=== PATIENT | female | born 1965 | race Caucasian/White ===

== ENCOUNTER 2020-07-01 19:06 | Outpatient (REF) | payer MEDICAID, SELFPAY ==
[2020-07-05 15:48] LABS: SARS-CoV-2 RNA Undetected (Undetected); SARS-CoV-2 Specimen Source Nasal
== END 2020-07-01 19:26 ==
LOC: NCHCN 19:06
PROVIDERS: PCP Nurse Practitioner Family; Visit Provider Nurse Practitioner Family
DX: Z20.828 Contact with and (suspected) exposure to other viral communicable diseases (principal)
CPT/HCPCS: U0003

== ENCOUNTER 2020-08-03 19:00 | Outpatient (REF) | payer MEDICAID, SELFPAY ==
[2020-08-07 15:42] LABS: SARS-CoV-2 RNA Undetected (Undetected); SARS-CoV-2 Specimen Source Nasal
== END 2020-08-03 19:20 ==
LOC: NCHCN 19:00
PROVIDERS: PCP Nurse Practitioner Family; Visit Provider Nurse Practitioner Family
DX: Z20.828 Contact with and (suspected) exposure to other viral communicable diseases (principal)
CPT/HCPCS: U0003

== ENCOUNTER 2021-01-11 15:52 | Outpatient (REF) | payer MEDICAID, SELFPAY ==
[2021-01-12 14:21] LABS: COVID-19 RT-PCR UVMMC Result Negative (Negative)
== END 2021-01-11 15:53 | disposition home or self-care (01) ==
LOC: NCHCN 15:52
PROVIDERS: PCP Nurse Practitioner Family; Visit Provider Nurse Practitioner Family
DX: Z20.822 Contact with and (suspected) exposure to COVID-19 (principal)
CPT/HCPCS: U0003

== ENCOUNTER 2021-08-23 11:38 | Outpatient (REF) | payer MEDICAID, SELFPAY ==
--- NOTE | 2021-08-23 11:00 | PAPFT_PTH ---
PATIENT: Rosi Espitia LOC: [facility]#:[id number] AGE/SX: 55/F ROOM: RE08/23/[address]: Pamela Dutton : 1965 BED: DIS: 08/23/2021 SPEC #: [id number] RECD: 08/24/21 12:42 STATUS: TIM REStephen #: [id number] WILLARD: 08/23/21 11:[address]: Amanda Duttonlaide DEPT: [facility] Cytology RECD BY: Cyndy Kern ENTERED: 08/24/21 12:42 SP TYPE: PAPFT OTHR DR: Yesika Moody Tissues: 1 - CX/ENDOCX FOR PAP SMEARS Procedures: PAP THIN PREP/[facility] Screening HPV DNA PROBE Comments: [id number]
[2021-08-23 20:49] LABS: TSH 1.24 uIU/mL (0.36-3.74)
== END 2021-08-23 11:39 | disposition home or self-care (01) ==
LOC: NCHCN 11:38
PROVIDERS: PCP Nurse Practitioner Family; Visit Provider Nurse Practitioner Family
DX: E03.9 Hypothyroidism, unspecified (principal); Z12.4 Encounter for screening for malignant neoplasm of cervix; Z11.51 Encounter for screening for human papillomavirus (HPV)
CPT/HCPCS: 88142; 84443; 87624

== ENCOUNTER 2022-07-12 15:35 | Outpatient (REF) | payer OTHER, MEDICAID, SELFPAY ==
[2022-07-12 19:29] LABS: TSH 0.28 uIU/mL (0.36-3.74)
== END 2022-07-12 15:36 | disposition home or self-care (01) ==
LOC: NCHCN 15:35
PROVIDERS: PCP Nurse Practitioner Family; Visit Provider Nurse Practitioner Family
DX: E03.9 Hypothyroidism, unspecified (principal)
CPT/HCPCS: 84443

== ENCOUNTER 2022-08-10 15:55 | Outpatient (REF) | payer OTHER, SELFPAY ==
[2022-08-10 19:56] LABS: TSH 0.61 uIU/mL (0.36-3.74)
== END 2022-08-10 15:56 | disposition home or self-care (01) ==
LOC: NCHCN 15:55
PROVIDERS: PCP Nurse Practitioner Family; Visit Provider Nurse Practitioner Family
DX: E03.9 Hypothyroidism, unspecified (principal); R63.5 Abnormal weight gain
CPT/HCPCS: 84443

== ENCOUNTER 2022-12-27 16:05 | Outpatient (REF) | payer OTHER, SELFPAY ==
[2022-12-27 19:40] LABS: ALT 36 U/L (14-59); AST 31 U/L (15-37); Albumin 3.9 g/dL (3.4-5.0); Alkaline Phosphatase 105 U/L (46-116); Anion Gap 5.7 mmol/L (3-11); BUN 23 mg/dL (7-18); Bilirubin, Total 0.3 mg/dL (0.2-1.0); CO2 28.3 mmol/L (21.0-32.0); Calcium 9.3 mg/dL (8.5-10.1); Chloride 105 mmol/L (98-107); Estimated GFR 65.71 (mL/min/1.73m2); Glucose 95 mg/dL (74-106); Potassium 4.2 mmol/L (3.5-5.1); Sodium 139 mmol/L (136-145); Total Protein 7.7 g/dL (6.4-8.2)
== END 2022-12-27 16:06 | disposition home or self-care (01) ==
LOC: NCHCN 16:05
PROVIDERS: PCP Nurse Practitioner Family; Visit Provider Nurse Practitioner Family
DX: R00.2 Palpitations (principal); E66.3 Overweight
CPT/HCPCS: 80053

== ENCOUNTER 2023-06-25 19:51 | Outpatient (REF) | payer OTHER, SELFPAY ==
[2023-06-25 19:50] LABS: ALT 28 U/L (14-59); AST 26 U/L (15-37); TSH 0.99 uIU/mL (0.36-3.74)
== END 2023-06-25 19:52 | disposition home or self-care (01) ==
LOC: NCHCN 19:51
PROVIDERS: PCP Nurse Practitioner Family; Visit Provider Nurse Practitioner Family
DX: E03.9 Hypothyroidism, unspecified (principal); Z02.89 Encounter for other administrative examinations
CPT/HCPCS: 84443; 84450; 84460

== ENCOUNTER 2023-12-30 18:15 | Outpatient (REF) | payer OTHER, SELFPAY ==
[2023-12-30 19:54] LABS: Bilirubin Negative (Negative); Blood Negative (Negative); Clarity Clear (Clear); Glucose Negative (Negative); Ketones Negative (Negative); Leukocyte Esterase Negative (Negative); Nitrite Negative (Negative); Urobilinogen 0.2 mg/dL (Up to 0.2)
== END 2023-12-30 18:16 | disposition home or self-care (01) ==
LOC: NCHCN 18:15
PROVIDERS: PCP Nurse Practitioner Family; Visit Provider Nurse Practitioner Family
DX: N32.81 Overactive bladder (principal)
CPT/HCPCS: 81003

== ENCOUNTER 2024-07-01 13:17 | Outpatient (REF) | payer OTHER, SELFPAY ==
[2024-07-01 20:26] LABS: ALT 34 U/L (14-59); AST 27 U/L (15-37); Albumin 3.8 g/dL (3.4-5.0); Alkaline Phosphatase 103 U/L (46-116); Anion Gap 9.9 mmol/L (3-11); BUN 13 mg/dL (7-18); Bilirubin, Total 0.37 mg/dL (0.2-1.0); CO2 28.1 mmol/L (21.0-32.0); CREATININE 0.9 mg/dL (0.55-1.02); Calcium 9.2 mg/dL (8.5-10.1); Calculated LDL 88 mg/dL (<100); Chloride 106 mmol/L (98-107); Cholesterol 179 mg/dL (<200); FREE T4 0.94 ng/dL (0.76-1.46); Glucose 86 mg/dL (74-106); HDL Cholesterol 83 mg/dL (40-60); Potassium 4.7 mmol/L (3.5-5.1); Sodium 144 mmol/L (136-145); Total Protein 7.4 g/dL (6.4-8.2); Triglyceride 40 mg/dL (<150)
== END 2024-07-01 13:18 | disposition home or self-care (01) ==
LOC: NCHCN 13:17
PROVIDERS: PCP Nurse Practitioner Family; Visit Provider Nurse Practitioner Family
DX: E03.9 Hypothyroidism, unspecified (principal)
CPT/HCPCS: 80053; 80061; 84439; 84443

== ENCOUNTER 2025-09-14 13:15 | Outpatient (REF) | payer OTHER, MEDICAID, SELFPAY ==
[2025-09-14 19:20] LABS: Abs Immature Grans 0.01 10^3/uL (0.0-0.06); HCT 41.8 % (36.0-46.0); HGB 15.1 g/dL (11.2-15.7); Immature Grans % 0.2 %; MCH 33.6 pg (27.0-33.0); MCHC 36.1 % (32.0-36.0); MCV 93 fL (80-95); MPV 9.8 fL (8.0-11.0); Platelet Count 319 10^3/uL (130-400); RBC 4.49 10^6/uL (3.93-5.22); RDW 11.8 % (11.7-14.6); RDW-SD 39.7 fL; WBC 4.63 10^3/uL (4.4-10.8)
[2025-09-14 19:36] LABS: ALT 25 U/L (10-49); AST 32 U/L (<34); Albumin 4.8 g/dL (3.2-5.0); Alkaline Phosphatase 71 U/L (46-116); Anion Gap 10.6 mmol/L (3-11); BUN 12 mg/dL (9-23); Bilirubin, Total 0.7 mg/dL (0.2-1.2); CO2 25.4 mmol/L (20.0-31.0); Calcium 9.5 mg/dL (8.3-10.6); Chloride 106 mmol/L (98-107); Cholesterol 165 mg/dL (<200); Glucose 75 mg/dL (74-106); HDL Cholesterol 85 mg/dL (>or=50); Potassium 4.0 mmol/L (3.5-5.1); Sodium 142 mmol/L (136-145); TSH (W/Ref FT4) 0.56 uIU/mL (0.55-4.78); Total Protein 7.7 g/dL (5.7-8.2)
== END 2025-09-14 13:16 | disposition home or self-care (01) ==
LOC: NCHCN 13:15
PROVIDERS: PCP Nurse Practitioner Family; Visit Provider Nurse Practitioner Family
DX: E03.9 Hypothyroidism, unspecified (principal); E66.9 Obesity, unspecified; R53.83 Other fatigue
CPT/HCPCS: 80053; 80061; 84443; 85025